=== PATIENT | male | born 1955 | race Caucasian/White ===

== ENCOUNTER 2019-07-23 07:00 | Day surgery (SDC) | payer OTHER ==
[~2019-07-23] VITALS: Ht 170.2 cm; Wt 86.1 kg
[~2019-07-23 07:00] MED LIST: ATOR40TA75 PO; LISI10TA15 PO; NS 1,000 ML IV SCH
[2019-07-23] MEDS ORDERED: LIDOCAINE 2% INJ 100 MG/5 ML SDV (FOR ANES.) As Ordered ONE (07:08)
[2019-07-23] MEDS ORDERED: PROPOFOL 200 MG/20 ML VIAL As Ordered ONE (07:08)
--- NOTE | 2019-07-23 08:38 | ROOR ---
Patient Name: Sukhjinder Mccann Procedure Date: 07/23/2019 8:18 AM Date of : 1955 Age: 64 Room: [facility] Gender: Male Note Status: Finalized Procedure: Total Colonoscopy to Cecum Indications: Screening for colorectal malignant neoplasm Providers: Anthony Chambers MD Referring MD: KAT Ramírez Requesting Provider: Medicines: Monitored Anesthesia Care Complications: No immediate complications. Procedure: Pre-Anesthesia Assessment: - The heart rate, respiratory rate, oxygen saturations, blood pressure, adequacy of pulmonary ventilation, and response to care were monitored throughout the procedure. The Colonoscope was introduced through the anus and advanced to the cecum, identified by appendiceal orifice and ileocecal valve. The colonoscopy was performed without difficulty. The patient tolerated the procedure well. The quality of the bowel preparation was excellent. Findings: The perianal and digital rectal examinations were normal. Non-bleeding internal hemorrhoids were found during retroflexion. The hemorrhoids were small and Grade I (internal hemorrhoids that do not prolapse). Multiple small and large-mouthed diverticula were found in the recto-sigmoid colon, sigmoid colon and descending colon. The exam was otherwise without abnormality on direct and retroflexion views. Impression: - Non-bleeding internal hemorrhoids. - Diverticulosis in the recto-sigmoid colon, in the sigmoid colon and in the descending colon. - The examination was otherwise normal on direct and retroflexion views. - No specimens collected. - The exam was otherwise normal to the cecum. Recommendation: - Patient has a contact number available for emergencies. The signs and symptoms of potential delayed complications were discussed with the patient. Return to normal activities tomorrow. Written discharge instructions were provided to the patient. - Resume previous diet. - Discharge patient to home. - Continue present medications. - Repeat colonoscopy in 10 years for screening purposes. - Return to referring physician. - The findings and recommendations were discussed with the patient's family. Anthony Chambers MD Anthony Chambers MD 07/23/2019 8:38:12 AM Electronically signed by Anthony Chambers MD Number of Addenda: 0 Note Initiated On: 07/23/2019 8:18 AM Estimated Blood Loss: Estimated blood loss: none.
[2019-07-23 09:12] VITALS: BP 146/68
== END 2019-07-23 09:14 | disposition home or self-care (01) ==
LOC: M OPP 07:00
PROVIDERS: ATTEND Internal Medicine Gastroenterology
DX: Z12.11 Encounter for screening for malignant neoplasm of colon (principal); K64.0 First degree hemorrhoids; K57.30 Diverticulosis of large intestine without perforation or abscess without bleeding; I10 Essential (primary) hypertension; E78.00 Pure hypercholesterolemia, unspecified; Z79.899 Other long term (current) drug therapy

== ENCOUNTER → 2020-10-14 | Outpatient (CLI) | payer SELFPAY ==
[~2020-10-14] MED LIST changes: -NS 1,000 ML IV SCH
== END ==
LOC: M LABSMTC 09:42
PROVIDERS: ATTEND Pediatrics
DX: Z20.822 Contact with and (suspected) exposure to COVID-19 (principal)

== ENCOUNTER → 2024-05-17 | Outpatient (CLI) | payer OTHER ==
[~2024-05-17] MED LIST changes: -LISI10TA15 PO; +LISI10TA24 PO
== END ==
LOC: M PLAIMG 07:26
PROVIDERS: ATTEND Nurse Practitioner Family
DX: Q23.1 Congenital insufficiency of aortic valve (principal)

== ENCOUNTER → 2024-10-18 | Outpatient (CLI) | payer MEDICARE, OTHER | LOC: M ADAMS 11:21 | PROVIDERS: ATTEND Physician Assistant | DX: Z95.2 Presence of prosthetic heart valve (principal); Z82.49 Family history of ischemic heart disease and other diseases of the circulatory system ==